=== PATIENT | female | born 1995 | race Caucasian/White ===

== ENCOUNTER → 2019-12-12 23:05 | Observation (INO) ==
[2019-12-12 21:25] LABS: Bacteria,Urine Few per hpf (None-Few); Bilirubin,Urine Negative (Negative); Blood,Urine Negative (Negative); Clarity,Urine Turbid (Clear); Color,Urine Yellow (Yellow); Glucose,Urine (UA) Normal (Normal); Ketones,Urine 60 mg/dL (Negative); Leukocyte Esterase,Urine Moderate (Negative); Mucus,Urine Many per lpf (None-Few); Nitrite,Urine Negative (Negative); PH,Urine 6.5 pH Units (5.0-8.0); Protein,Urine 50 mg/dL (Neg-Trace); Specific Gravity,Urine 1.027 (1.010-1.025); Squamous Epithelial Cell,Urine Moderate per hpf (None-Few); Urobilinogen,Urine Normal (Normal)
[~2019-12-12 23:05] MED LIST: Ondansetron ODT 4 MG TAB.RAPDIS PO ONE
== END | disposition home or self-care (01) ==
LOC: 1NENULAB
PROVIDERS: ADMIT Student in an Organized Health Care Education/Training Program; ATTEND Student in an Organized Health Care Education/Training Program

== ENCOUNTER → 2020-02-02 01:00 | Observation (INO) ==
[2020-02-01 23:09] LABS: Bacteria,Urine Few per hpf (None-Few); Bilirubin,Urine Negative (Negative); Blood,Urine Negative (Negative); Clarity,Urine Turbid (Clear); Color,Urine Yellow (Yellow); Glucose,Urine (UA) Normal (Normal); Ketones,Urine Negative (Negative); Leukocyte Esterase,Urine Moderate (Negative); Mucus,Urine Many per lpf (None-Few); Nitrite,Urine Negative (Negative); PH,Urine 6.5 pH Units (5.0-8.0); Protein,Urine 30 mg/dL (Neg-Trace); RBC,Urine 0-3 per hpf (0-3); Specific Gravity,Urine 1.024 (1.010-1.025); Squamous Epithelial Cell,Urine Moderate per hpf (None-Few)
[~2020-02-02 01:00] MED LIST changes: +FLU Vac QV 20-21 (6Month+)/PF 0.5 ML SYRINGE IM ONE; -Ondansetron ODT 4 MG TAB.RAPDIS PO ONE
== END | disposition home or self-care (01) ==
LOC: 1NENULAB
PROVIDERS: ADMIT Obstetrics & Gynecology; ATTEND Obstetrics & Gynecology

== ENCOUNTER 2020-03-03 14:28 | Observation (INO) ==
[2020-03-03] MEDS ORDERED: Acetaminophen/Butalbital/CaffeineTABLET PO PRN (14:54)
[2020-03-03 15:18] LABS: Bacteria,Urine Few per hpf (None-Few); Bilirubin,Urine Negative (Negative); Blood,Urine Negative (Negative); Clarity,Urine Turbid (Clear); Color,Urine Yellow (Yellow); Glucose,Urine (UA) Normal (Normal); Ketones,Urine Negative (Negative); Leukocyte Esterase,Urine Large (Negative); Mucus,Urine Few per lpf (None-Few); Nitrite,Urine Negative (Negative); Protein,Urine 30 mg/dL (Neg-Trace); RBC,Urine 0-3 per hpf (0-3); Specific Gravity,Urine 1.021 (1.010-1.025); Squamous Epithelial Cell,Urine Moderate per hpf (None-Few); Urobilinogen,Urine Normal (Normal)
[2020-03-03 16:24] LABS: Alanine Aminotransferase 11 Units/L (7-52); Aspartate Amino Transferase 11 Units/L (13-39); BUN/Creatinine Ratio 20 (6-26); Blood Urea Nitrogen 10 mg/dL (6-20); Lactate Dehydrogenase 103 Units/L (140-271); Uric Acid 4.7 mg/dL (2.3-7.6); eGFR For African Americans > 60 (> 60); eGFR For Non-African Americans > 60 (> 60)
[2020-03-03 16:25] LABS: Basophils % 0.3 %; Eosinophils # 0.1 K/mcL (0.0-0.6); Eosinophils % 0.5 %; Hematocrit 35.8 % (35.3-44.9); Hemoglobin 11.8 g/dL (11.5-15.4); Immature Granulocytes % 0.7 % (0-4); Lymphocytes # 1.6 K/mcL (0.6-4.6); Lymphocytes % 15.8 %; Mean Corpuscular Hemoglobin 28.2 pg (28.0-33.3); Mean Corpuscular Volume 85.6 fL (83.0-100.0); Mean Platelet Volume 10.7 fL (9.4-12.4); Monocytes # 0.5 K/mcL (0.0-1.3); Neutrophils # 7.7 K/mcL (1.6-8.9); Platelet Count 279 K/mcL (140-400); Red Blood Count 4.18 M/mcL (3.82-4.97); Red Cell Distribution Width 12.8 % (11.5-14.5); Segmented Neutrophils % 77.7 %; White Blood Count 9.9 K/mcL (4.3-11.1)
[2020-03-03 16:42] LABS: Protein/Creatinine Ratio,Urine 0.27 mg/mg (0.00-0.20)
[2020-03-03] MEDS ORDERED: Magnesium Oxide 400 MG TABLET PO SCH (17:09)
[2020-03-04] MEDS ORDERED: Magnesium Oxide 400 MG TABLET PO SCH (09:00)
== END 2020-03-03 18:23 | disposition home or self-care (01) ==
LOC: 1NENULAB
PROVIDERS: ADMIT Obstetrics & Gynecology; ATTEND Obstetrics & Gynecology

== ENCOUNTER 2020-03-12 05:40 | Inpatient (IN) ==
[2020-03-12] MEDS ORDERED: Metoclopramide 10 MG/2 ML VIAL IVP ONE (05:49)
[2020-03-12] MEDS ORDERED: CeFAZolin 2,000 MG/50 ML BAG IVPB ONE (05:49)
[2020-03-12] MEDS ORDERED: Ringers Solution, Lactated 1,000 ML IVC ONE (05:49)
[2020-03-12] MEDS ORDERED: Famotidine 20 MG/2 ML VIAL IVP ONE (05:49)
[2020-03-12] MEDS ORDERED: Promethazine 6.25 MG in Water for inj. (sterile) 20 ML IVPB PRN (06:14)
[2020-03-12] MEDS ORDERED: *HR* HYDROmorphone PF 0.5 MG/0.5 ML SYRINGE IVP PRN (06:14)
[2020-03-12] MEDS ORDERED: Ondansetron 4 MG/2 ML VIAL IVP PRN ×2 (06:14→11:47)
[2020-03-12] MEDS ORDERED: Naloxone 0.4 MG/ML INJ IVP PRN (06:14)
[2020-03-12] MEDS ORDERED: *HR* OxyCODONE/APAP 5/325 TABLET PO PRN ×2 (06:14→11:47)
[2020-03-12] MEDS ORDERED: Ringers Solution, Lactated 1,000 ML IVC SCH (06:15)
[2020-03-12 06:27] LABS: Basophils % 0.3 %; Eosinophils # 0.1 K/mcL (0.0-0.6); Eosinophils % 0.5 %; Hematocrit 36.6 % (35.3-44.9); Hemoglobin 12.4 g/dL (11.5-15.4); Immature Granulocytes % 0.4 % (0-4); Lymphocytes % 19.3 %; Mean Corpuscular HGB Conc 33.9 g/dL (31.6-35.5); Mean Corpuscular Hemoglobin 28.8 pg (28.0-33.3); Mean Corpuscular Volume 85.1 fL (83.0-100.0); Mean Platelet Volume 10.7 fL (9.4-12.4); Monocytes # 0.5 K/mcL (0.0-1.3); Neutrophils # 7.8 K/mcL (1.6-8.9); Platelet Count 306 K/mcL (140-400); Red Cell Distribution Width 13.2 % (11.5-14.5); Segmented Neutrophils % 74.5 %; White Blood Count 10.4 K/mcL (4.3-11.1)
[2020-03-12] MEDS ORDERED: *HR* FentaNYL (PF) 100 MCG/2 ML VIAL ONE ×2 (06:28→07:05)
[2020-03-12] MEDS ORDERED: *HR* Morphine Sulfate/PF 10 MG/10 ML AMPUL ONE (06:28)
[2020-03-12] MEDS ORDERED: Oxytocin 20 units/ LR 1000 mL 20 UNIT/1,000 ML BAG IVC ONE (07:30)
[2020-03-12] MEDS ORDERED: Acetaminophen IV 1,000 MG/100 ML BAG IVPB ONE (07:34)
[2020-03-12] MEDS ORDERED: *HR* Phenylephrine 10 MG/ML VIAL ONE (07:36)
[2020-03-12] MEDS ORDERED: Ondansetron 4 MG/2 ML VIAL ONE (08:31)
[2020-03-12 08:37] LABS: Amphetamine Screen,Urine Negative ng/mL (Cutoff=1000); Barbiturate Screen,Urine Negative ng/mL (Cutoff=200); Benzodiazepines Screen,Urine Negative ng/mL (Cutoff=200); Cannabinoid Screen,Urine Negative ng/mL (Cutoff = 50); Cocaine Screen,Urine Negative ng/mL (Cutoff= 300); Opiate Screen,Urine Negative ng/mL (Cutoff=300); Phencyclidine Screen,Urine Negative ng/mL (Cutoff=25)
[2020-03-12] MEDS ORDERED: Metoclopramide 10 MG/2 ML VIAL IVP PRN (11:47)
[2020-03-12] MEDS ORDERED: Sennosides 8.6 MG TABLET PO PRN (11:47)
[2020-03-12] MEDS ORDERED: Simethicone 80 MG TAB.CHEW PO PRN (11:47)
[2020-03-12] MEDS: metroNIDAZOLE 500 MG TABLET PO SCH ×2 (12:33→19:31)
[2020-03-12] MEDS: Prenatal Vit/FA 1 EACH TABLET PO SCH (12:33)
[2020-03-12] MEDS: Famotidine 20 MG TABLET PO SCH (12:33)
[2020-03-12] MEDS: Oxytocin 20 units/ LR 1000 mL 20 UNIT/1,000 ML BAG IVC SCH ×2 (12:42→19:31)
[2020-03-12] MEDS: CeFAZolin 2 GM/120 ML BAG IVPB SCH (16:17)
[2020-03-13] MEDS: Ibuprofen 600 MG TABLET PO PRN ×2 (00:40→07:42)
[2020-03-13] MEDS: CeFAZolin 2 GM/120 ML BAG IVPB SCH (00:42)
[2020-03-13 04:27] LABS: Basophils % 0.1 %; Eosinophils % 0.2 %; Hematocrit 29.2 % (35.3-44.9); Immature Granulocytes % 0.2 % (0-4); Mean Corpuscular HGB Conc 34.6 g/dL (31.6-35.5); Mean Corpuscular Hemoglobin 29.3 pg (28.0-33.3); Mean Corpuscular Volume 84.6 fL (83.0-100.0); Mean Platelet Volume 10.6 fL (9.4-12.4); Monocytes # 0.5 K/mcL (0.0-1.3); Monocytes % 4.4 %; Neutrophils # 9.3 K/mcL (1.6-8.9); Platelet Count 228 K/mcL (140-400); Red Blood Count 3.45 M/mcL (3.82-4.97); Red Cell Distribution Width 13.1 % (11.5-14.5); Segmented Neutrophils % 86.1 %; White Blood Count 10.8 K/mcL (4.3-11.1)
[2020-03-13 04:28] LABS: Hemoglobin 10.1 g/dL (11.5-15.4)
[2020-03-13] MEDS: Prenatal Vit/FA 1 EACH TABLET PO SCH (07:42)
[2020-03-13] MEDS: Famotidine 20 MG TABLET PO SCH (07:43)
[2020-03-13] MEDS: metroNIDAZOLE 500 MG TABLET PO SCH (07:43)
[2020-03-13 08:38] VITALS: BP 121/79
== END 2020-03-13 11:41 | disposition home or self-care (01) | DRG 539 ==
LOC: 1NENULAB 05:40 → 1NENUOBS 11:30
PROVIDERS: ADMIT Obstetrics & Gynecology; ATTEND Obstetrics & Gynecology